=== PATIENT | female | born 1970 | race Caucasian/White ===

== ENCOUNTER → 2019-03-18 13:45 | Outpatient (CLI) | payer OTHER, BC, SELFPAY ==
--- NOTE | 2019-03-18 | DI.US.S_ITS ---
PROCEDURE: US PELVIC COMPLETE INDICATIONS: URINARY FREQUENCY TECHNIQUE: Real-time scanning was performed of the pelvic organs, with image documentation. Additional endovaginal scanning was necessary due to incomplete visualization of the adnexal and endometrial structures by transabdominal scanning. COMPARISON: None. FINDINGS: Transabdominal scanning: Limited scanning through the kidneys shows no hydronephrosis. No pathologic free abdominal or pelvic fluid. Endovaginal scanning: Uterus: Uterus is retroflexed. The uterus dimensions were not measured. The endometrium measures 6.3. mm in combined thickness. There is a 4.7 x 4.3 x 4.8 cm left posterior subserosal uterine fibroid. Ovaries: Right ovary measures 2.4 x 1.3 x 1.0 cm. Left ovary measures 2.7 x 1.2 x 1.3 cm. The ovaries are sonographically normal. IMPRESSION: 1. 4.7 x 4.3 x 4.8 cm uterine fibroid. 2. Ovaries are sonographically normal. Dictated by: Leeanne Pro MD, PhD on 03/18/2019 at 17:18 Approved by: Leeanne Pro MD, PhD on 03/18/2019 at 17:21
--- NOTE | 2019-03-18 | DI.MG.S_ITS ---
BILATERAL DIGITAL SCREENING MAMMOGRAM 3D/2D WITH CAD: 03/18/2019 CLINICAL: Routine screening. Family history of breast cancer. Comparison is made to exams dated: 12/19/2017 mammogram, 10/23/2015 mammogram, and 05/27/2008 mammogram - [facility]. The tissue of both breasts is heterogeneously dense. This may lower the sensitivity of mammography. Current study was also evaluated with a Computer Aided Detection (CAD) system. No significant masses, calcifications, or other findings are seen in either breast. There has been no significant interval change. IMPRESSION: NEGATIVE There is no mammographic evidence of malignancy. A 1 year screening mammogram is recommended. This exam was interpreted at Station ID: [id number]. NOTE: For mammograms, a report in lay terms will be sent to the patient. Approximately 15% of breast malignancies will not be visualized mammographically. In the management of a palpable breast mass, a negative mammogram must not discourage biopsy of a clinically suspicious lesion. Electronically Signed By: Grant mak/lianna:03/18/2019 19:34:41 copy to: Rosi Handy letter sent: Normal Exam ACR BI-RADS Category 1: Negative [id number]
== END ==
PROVIDERS: PCP Family Medicine; Visit Provider Nurse Practitioner Family
DX: Z12.31 Encounter for screening mammogram for malignant neoplasm of breast (principal); Z80.3 Family history of malignant neoplasm of breast; R35.0 Frequency of micturition; D25.2 Subserosal leiomyoma of uterus
CPT/HCPCS: 76830; 76856; 77063; 77067

== ENCOUNTER → 2022-03-18 07:42 | Outpatient (CLI) | payer OTHER, BC, SELFPAY ==
--- NOTE | 2022-03-18 | DI.MG.S_ITS ---
BILATERAL DIGITAL SCREENING MAMMOGRAM 3D/2D WITH CAD: 03/18/2022 CLINICAL: Routine screening. Family history of breast cancer. Comparison is made to exams dated: 03/18/2019 mammogram, 12/19/2017 mammogram, and 10/23/2015 mammogram - [facility]. The tissue of both breasts is heterogeneously dense. This may lower the sensitivity of mammography. Current study was also evaluated with a Computer Aided Detection (CAD) system. There is a new architectural distortion in the left breast at 2 o'clock middle depth. No other significant masses, calcifications, or other findings are seen in either breast. IMPRESSION: INCOMPLETE: NEEDS ADDITIONAL IMAGING EVALUATION The new architectural distortion in the left breast is indeterminate. Additional views with possible ultrasound are recommended. This exam was interpreted at Station ID: [id number]. NOTE: For mammograms, a report in lay terms will be sent to the patient. Approximately 15% of breast malignancies will not be visualized mammographically. In the management of a palpable breast mass, a negative mammogram must not discourage biopsy of a clinically suspicious lesion. Electronically Signed By: Jose A Fish M.D., jr/lianna:03/18/2022 10:26:02 copy to: Rosi Handy letter sent: Additional Imaging Needed ACR BI-RADS Category 0: Incomplete [id number]
== END ==
PROVIDERS: PCP Nurse Practitioner Family; Referring Provider Nurse Practitioner Family; Visit Provider Nurse Practitioner Family
DX: Z12.31 Encounter for screening mammogram for malignant neoplasm of breast (principal); Z80.3 Family history of malignant neoplasm of breast; R92.8 Other abnormal and inconclusive findings on diagnostic imaging of breast
CPT/HCPCS: 77063; 77067

== ENCOUNTER → 2022-04-08 13:09 | Outpatient (CLI) | payer OTHER, BC, SELFPAY ==
--- NOTE | 2022-04-08 | DI.MG.S_ITS ---
UNILATERAL LEFT DIGITAL DIAGNOSTIC MAMMOGRAM 3D/2D WITH ADDITIONAL VIEWS: 04/08/2022 CLINICAL: Additional evaluation requested from prior study. Comparison is made to exams dated: 03/18/2022 mammogram, 03/18/2019 mammogram, and 12/19/2017 mammogram - [facility]. The tissue of left breast is heterogeneously dense. This may lower the sensitivity of mammography. There is possible architectural distortion in the left breast at 2 o'clock middle depth. This is less prominent. No other significant masses or calcifications are seen in the breast. IMPRESSION: INCOMPLETE: NEEDS ADDITIONAL IMAGING EVALUATION The possible architectural distortion in the left breast is indeterminate. A targeted ultrasound is recommended and will immediately follow. This exam was interpreted at Station ID: [id number]. NOTE: For mammograms, a report in lay terms will be sent to the patient. Approximately 15% of breast malignancies will not be visualized mammographically. In the management of a palpable breast mass, a negative mammogram must not discourage biopsy of a clinically suspicious lesion. Electronically Signed By: Manas Rose M.D. slc/:04/08/2022 14:39:50 copy to: Rosi Handy ACR BI-RADS Category 0: Incomplete [id number]
--- NOTE | 2022-04-08 | DI.US.S_ITS ---
LIMITED ULTRASOUND OF LEFT BREAST AND AXILLA: 04/08/2022 CLINICAL: Patient returns today to evaluate an architectural distortion in the left breast. Comparison is made to exams dated: 04/08/2022 mammogram, 03/18/2022 mammogram, and 03/18/2019 mammogram - [facility]. Color flow and real-time ultrasound of the left breast 2 o'clock, and axilla regions were performed. Casey scale images of the real-time examination were reviewed. No significant abnormalities were seen sonographically in the left breast or the left axilla. No mass in the region of possible architectural distortion. IMPRESSION: PROBABLY BENIGN No mass in the region of possible architectural distortion. A follow-up mammogram and possible US in 6 months is recommended to demonstrate stability. Exam findings were conveyed to the patient. This exam was interpreted at Station ID: [id number]. Electronically Signed By: Manas Rose M.D. slc/:04/08/2022 15:37:35 copy to: Rosi Handy letter sent: Followup Recommended Ultrasound BI-RADS: 3 Probably benign
== END ==
PROVIDERS: PCP Nurse Practitioner Family; Referring Provider Nurse Practitioner Family; Visit Provider Nurse Practitioner Family
DX: R92.8 Other abnormal and inconclusive findings on diagnostic imaging of breast (principal)
CPT/HCPCS: 76642; 77065; G0279

== ENCOUNTER → 2022-12-09 14:51 | Outpatient (CLI) | payer OTHER, BC, SELFPAY ==
--- NOTE | 2022-12-09 | DI.MG.S_ITS ---
UNILATERAL LEFT DIGITAL DIAGNOSTIC MAMMOGRAM 3D/2D: 12/09/2022 CLINICAL: Short term follow up for the left breast. Comparison is made to exams dated: 04/08/2022 ultrasound, 04/08/2022 mammogram, 03/18/2022 mammogram, and 03/18/2019 mammogram - . The left breast is heterogeneously dense, which may obscure small masses (category c / 51-75% glandular tissue). There is possible architectural distortion in the left breast at 2 o'clock middle depth. This is not significantly changed and was not seen on the prior ultrasound. No other significant masses or calcifications are seen in the breast. IMPRESSION: PROBABLY BENIGN The possible architectural distortion in the left breast is probably benign. A follow-up mammogram in 6 months is recommended to demonstrate stability. Based on the Tyrer Cuzick model (a risk assessment model) the patient's lifetime risk is 18.5% and her 10 year risk is 5.0%. According to the ACR, ACS, and NCCN guidelines, an annual breast MRI exam along with mammogram is recommended if the patient's lifetime risk is 20% or greater. This exam was interpreted at Station ID: [id number]. NOTE: For mammograms, a report in lay terms will be sent to the patient. Approximately 15% of breast malignancies will not be visualized mammographically. In the management of a palpable breast mass, a negative mammogram must not discourage biopsy of a clinically suspicious lesion. Electronically Signed By: Brenton taylor/lianna:12/09/2022 15:09:42 copy to: Rosi Handy letter sent: Followup Recommended ACR BI-RADS Category 3: Probably benign [id number]
== END ==
PROVIDERS: PCP Nurse Practitioner Family; Referring Provider Nurse Practitioner Family; Visit Provider Nurse Practitioner Family
DX: R92.8 Other abnormal and inconclusive findings on diagnostic imaging of breast (principal)
CPT/HCPCS: 77065; G0279

== ENCOUNTER 2024-06-22 09:19 | Emergency (ER) | payer OTHER, BC, SELFPAY ==
[2024-06-22] VITALS (7 sets, daily range): BP systolic 110–171; BP diastolic 70–96; PULSE 55–72; RESP 15–20; TEMP 36.6; O2SAT 96–99; BMI 27.4
--- NOTE | 2024-06-22 09:43 | EKG_ITS ---
[address] [address] Test Date: 2024-06-22 Pat Name: Eboni Montiel Department: Room: Gender: Female Home Decorator: NATE : 1970 Requested By: Order Number: [id number] Reading MD: Chema Babcock Measurements Intervals [place] Rate: 62 P: 58 TN: 148 QRS: 7 QRSD: 84 T: 41 QT: 424 QTc: 430 Interpretive Statements Sinus rhythm with premature atrial complexes with aberrant conduction Electronically Signed On 06-24-2024 15:52:38 PDT by Chema Babcock
--- NOTE | 2024-06-22 09:49 | DI.RAD.S_ITS ---
PROCEDURE: XR CHEST 1V INDICATIONS: chest pain TECHNIQUE: One view of the chest was acquired. COMPARISON: None. FINDINGS: Surgical changes and devices: Surgical clips in the left axilla Lungs and pleura: Lungs are clear. No pleural effusions or pneumothorax. Mediastinum: Mediastinal contours appear normal. Heart size is normal. Bones and chest wall: No suspicious bony lesions. Overlying soft tissues appear unremarkable. IMPRESSION: No acute cardiopulmonary abnormality is seen. Approved by: Sandeep Mendez M.D. on 06/22/2024 at 9:40
[2024-06-22] MEDS: ASPIRIN 81 MG CHEW TAB 324 MG PO (10:10)
[2024-06-22 10:23] LABS: INR 1.1 (0.9-1.3); Prothrombin Time 12.3 SECONDS (9.4-12.5)
[2024-06-22 10:25] LABS: PTT Partial Thromboplastin Tim 41 SECONDS (25.1-36.5)
--- NOTE | 2024-06-22 10:26 | ED_ITS ---
HPI - Chest Pain General Chief Complaint: Chest Pain Stated Complaint: Tightness in Chest Time Seen by Provider: 06/22/24 10:25 Source: patient Mode of arrival: Ambulatory Limitations: no limitations History of Present Illness HPI narrative: Patient is a 53-year-old female without significant past medical history presenting today with ongoing chest tightness. She recently got back from long trip to [place] includes the [facility] and other places. She reports that this chest tightness does not stop her from doing her daily activities she does not really feel short of breath. She has had no fever chills or upper respiratory like symptoms. She has not really describing it as pain. She has a known PVC which she says has been there for a long time and not caused her any problems. She denies any fluttering or palpitations. I do see PVCs on the monitor. No swelling. Not on any hormones. Related Data Home Medications Medication Instructions Recorded Confirmed bismuth subsalicylate 262 mg 1 tab PO ##0 06/29/17 chewable tablet (Pepto-Bismol) Allergies Allergy/AdvReac Type Severity Reaction Status Date / Time codeine AdvReac Intermediate Vomiting Verified 06/22/24 09:48 Patient History Surgical History History of carpal tunnel repair Family History Mother Age: 73 Thyroid disease Sister Age: 38 Cancer Thyroid disease Exam Initial Vital Signs Initial Vital Signs: Vital Signs Temperature 97.8 F 06/22/24 09:25 Pulse Rate 65 06/22/24 09:25 Respiratory Rate 18 06/22/24 09:25 Blood Pressure 171/96 H 06/22/24 09:25 Pulse Oximetry 96 06/22/24 09:25 Oxygen Delivery Method Room Air 06/22/24 09:25 GENERAL: Alert pleasant 53-year-old and in no acute distress. HEENT: Head atraumatic,EOMI, pupils reactive, face symmetric, moist mucous membranes CARDIOVASCULAR: Regular rate and rhythm without murmurs, rubs or gallops. RESPIRATORY: Breath sounds equal bilaterally, no wheezes rales or rhonchi. ABDOMEN: Soft, nontender. Normoactive bowel sounds all 4 quadrants. No guarding or rebound. EXTREMITIES: Normal range of motion, no clubbing or edema. Neurovascularly intact NEUROLOGICAL: Alert and oriented x4.Normal gait and speech. Cranial nerves II through XII grossly intact. SKIN: Warm, dry, no laceration, no petechiae, no rashes or lesions. Scores HEART Score Heart Score history: Slightly Suspicious Heart Score EKG: Normal Heart Score Age: 45-64 years old Heart Score risk factors: No known risk factors Heart Score troponin: < or = to normal limit Heart Score Total: 1 Course Orders Ordered: ED Orders 06/22/24 09:35 EKG-12 Lead Stat 06/22/24 09:49 XR chest 1V Stat 06/22/24 10:00 Complete Blood Count AUTO DIFF Stat Comprehensive Metabolic Panel Stat Lipase Stat Magnesium Stat NT-proBNP (BNP-Adult 18+) Stat PTT Partial Thromboplastin Adria Stat Prothrombin Time INR Stat Troponin & CK Cardiac Panel Stat 06/22/24 10:10 D Dimer Stat Discontinued Medications Aspirin (Aspirin 81 Mg Chew Tab) 324 mg PO NOW ONE Stop: 06/22/24 09:50 Last Admin: 06/22/24 10:10 Dose: 324 mg Documented By: RICKY Vital Signs Vital signs: Vital Signs - 8 hr 06/22/24 09:25 06/22/24 09:37 06/22/24 09:37 Temperature 97.8 F Pulse Rate 65 72 Respiratory Rate 18 Blood Pressure 171/96 H 171/96 H Pulse Oximetry 96 98 Oxygen Delivery Method Room Air 06/22/24 10:00 06/22/24 10:08 06/22/24 10:08 Temperature Pulse Rate 59 L 55 L Respiratory Rate 19 15 Blood Pressure 145/70 H Pulse Oximetry 98 97 Oxygen Delivery Method 06/22/24 10:30 06/22/24 10:30 06/22/24 11:00 Temperature Pulse Rate 65 62 Respiratory Rate 20 20 Blood Pressure 118/84 Pulse Oximetry 98 99 Oxygen Delivery Method 06/22/24 11:01 06/22/24 11:01 Temperature Pulse Rate 61 Respiratory Rate 17 Blood Pressure 110/74 Pulse Oximetry 98 Oxygen Delivery Method MDM - Chest Pain Lab Data 06/22/24 10:00 06/22/24 10:00 Labs: Lab Results 06/22/24 06/22/24 Range/Units 10:00 10:10 WBC 6.5 (4.5-11.0) X10^3/uL RBC 4.39 (4.0-5.2) X10^6/uL Hgb 13.6 (12.0-16.0) g/dL Hct 38.9 (36-46) % MCV 88.6 (80-100) fL MCH 30.9 (26-34) PG MCHC 34.9 (30-36) % RDW 13.1 (11.6-14.8) % Plt Count 279 (150-400) X10^3/uL Neut % (Auto) 61.2 (50-75) % Lymph % (Auto) 29.6 (25-40) % Evans % (Auto) 6.5 (3-14) % Eos % (Auto) 1.5 L (2-4) % Baso % (Auto) 1.2 (0-2) % Neut # (Auto) 3900 (8589-4715) /uL Lymph # (Auto) 1900 (7082-0988) /uL Evans # (Auto) 400 (0-900) /uL Eos # (Auto) 100 (0-450) /uL Baso # (Auto) 100 (0-100) /uL PT 12.3 (9.4-12.5) SECONDS INR 1.1 (0.9-1.3) APTT 41 H (25.1-36.5) SECONDS D-Dimer 279 (<500) ng/ml Sodium 136 L (137-145) mmol/L Potassium 3.8 (3.4-5.1) mmol/L Chloride 101 (98-107) mmol/L Carbon Dioxide 26 (22-32) mmol/L BUN 11 (7-17) mg/dL Creatinine 0.85 (0.52-1.04) mg/dL Estimated GFR > 60 (>60) mL/min BUN/Creatinine Ratio 12.9 (6-22) Glucose 90 (70-100) mg/dL Calcium 9.6 (8.4-10.2) mg/dL Magnesium 1.9 (1.6-2.3) mg/dL Total Bilirubin 0.8 (0.2-1.3) mg/dL AST 27 (14-36) IU/L ALT 21 (<35) IU/L Alkaline Phosphatase 66 (38-126) U/L Total Creatine Kinase 62 (30-135) U/L Troponin I < 0.012 (0.01-0.034) ng/mL NT-Pro-B Natriuret Pep 25 (<125) pg/mL Total Protein 7.6 (6.3-8.2) g/dL Albumin 4.6 (3.5-5.0) g/dL Globulin 3.0 (1.7-4.1) g/dL Albumin/Globulin Ratio 1.5 (1.0-2.8) Lipase 61 (23-300) U/L Imaging Data Chest x-ray: Radiologist's Impression: INDICATIONS: chest pain TECHNIQUE: One view of the chest was acquired. COMPARISON: None. FINDINGS: Surgical changes and devices: Surgical clips in the left axilla Lungs and pleura: Lungs are clear. No pleural effusions or pneumothorax. Mediastinum: Mediastinal contours appear normal. Heart size is normal. Bones and chest wall: No suspicious bony lesions. Overlying soft tissues appear unremarkable. IMPRESSION: No acute cardiopulmonary abnormality is seen. Approved by: Sandeep Mendez M.D. on 06/22/2024 at 9:40 ECG Data Attestation: I personally reviewed and interpreted this ECG as follows: Interpretation: Normal sinus rhythm rate 62 MO interval 148 QRS 84 QTC 430 PVC noted no ischemic changes no S-wave T-wave or T-wave inversions MDM Narrative Medical decision making narrative: [facility] CC: Chest tightness Complicating co-morbidities: No medical history Medical records reviewed: None Differential considered: Asthma CHF infectious pneumonia pulmonary embolism acute coronary syndrome Exam documented above, pertinent findings include: Well-appearing no acute distress no respiratory distress no wheezing rales or rhonchi no edema Lab Test results independently reviewed as above. Pertinent findings: CBC shows no anemia or leukocytosis D-dimer 279 Troponin negative, BNP 25 Electrolytes within normal limits creatinine 0.85 Independently reviewed EKG as above no ischemia PVC noted Imaging studies independently reviewed: No acute cardiopulmonary process Consultations: none Treatments: none Re-evaluations: No change not significantly worse or better appears well nontoxic vitals stable Discussion: 53-year-old female presenting today with chest tightness. She has no significant risk factors. Heart score 1, year score is negative. She clinically appears well nontoxic without respiratory distress wheezing rales or rhonchi. No concern for acute coronary syndrome she has low risk heart score with a negative troponin and normal EKG. No concern for pulmonary embolism her D-dimer is less than 500 she has not tachycardic or hypoxic. She has no sign of infection on her chest x-ray. Blood work is overall reassuring. She does have frequent PVCs but this is something chronic for her she has never been symptomatic with them and historically. At this time recommend outpatient follow-up YEARS Algorithm for Pulmonary Embolism (PE) from [employer] on 06/22/2024 All calculations should be rechecked by clinician prior to use RESULT SUMMARY: PE excluded YEARS algorithm rules out PE (0.43% with symptomatic VTE during 3-month follow- up) INPUTS: patient ?> 0 = No Clinical signs of DVT ?> 0 = No Hemoptysis ?> 0 = No PE most likely diagnosis ?> 0 = No D-dimer >=,000 ng/mL FEU ?> 0 = No Discharge Plan Departure Patient Disposition: Home Clinical Impression: Atypical chest pain Instructions: DI for Atypical Chest Pain Activity Restrictions/Additional Instructions: *You have been diagnosed with atypical chest pain *What to do: At this time workup in the emergency department is overall reassuring. Blood work is all within normal limits chest x-ray is clear for any sort of infection and EKGs shows your regular PVCs. You may require further cardiac testing primary care provider however not indicated at this time *Continue to take medications as directed *Follow up with your primary care provider in 2-3 days or call [phone] *Return to ER if you should have increasing chest pain shortness of breath [or] any new, worsening or concerning symptoms Prescriptions: No Action bismuth subsalicylate [Pepto-Bismol] 262 MG tablet,chewable 1 tab PO Qty: 0 Referrals: Miriam Aguila ARNP [Primary Care Provider] - Stand Alone Forms: Patient Portal/API
[2024-06-22 10:27] LABS: Alanine Aminotransferase 21 IU/L (<35); Albumin 4.6 g/dL (3.5-5.0); Albumin Globulin Ratio 1.5 (1.0-2.8); Alkaline Phosphatase 66 U/L (38-126); Aspartate Aminotransferase 27 IU/L (14-36); BUN Creatinine Ratio 12.9 (6-22); Bilirubin Total 0.8 mg/dL (0.2-1.3); Blood Urea Nitrogen 11 mg/dL (7-17); Calcium 9.6 mg/dL (8.4-10.2); Carbon Dioxide 26 mmol/L (22-32); Chloride 101 mmol/L (98-107); Creatine Kinase 62 U/L (30-135); Estimated Glomerular Filt Rate > 60 mL/min (>60); Glucose 90 mg/dL (70-100); HEMOLYSIS < 15 (0-50); Lipase 61 U/L (23-300); Magnesium 1.9 mg/dL (1.6-2.3); Potassium 3.8 mmol/L (3.4-5.1); Sodium 136 mmol/L (137-145); Total Protein 7.6 g/dL (6.3-8.2)
[2024-06-22 10:34] LABS: Add Manual Diff / Slide Review NO; Basophils Absolute Auto 100 /uL (0-100); Basophils Percent Auto 1.2 % (0-2); Eosinophils Absolute Auto 100 /uL (0-450); Eosinophils Percent Auto 1.5 % (2-4); Hematocrit 38.9 % (36-46); Hemoglobin 13.6 g/dL (12.0-16.0); Lymphocytes Absolute Auto 1900 /uL (1100-4500); Lymphocytes Percent Auto 29.6 % (25-40); Mean Corpuscular HGB Conc 34.9 % (30-36); Mean Corpuscular Hemoglobin 30.9 PG (26-34); Mean Corpuscular Volume 88.6 fL (80-100); Monocytes Absolute Auto 400 /uL (0-900); Monocytes Percent Auto 6.5 % (3-14); Neutrophils Absolute Auto 3900 /uL (1500-7000); Neutrophils Percent Auto 61.2 % (50-75); Platelet Count 279 X10^3/uL (150-400); Red Blood Cell Count 4.39 X10^6/uL (4.0-5.2); Red Cell Distribution Width 13.1 % (11.6-14.8); White Blood Cell Count 6.5 X10^3/uL (4.5-11.0)
[2024-06-22 10:38] LABS: NT-proBNP (BNP-Adult 18+) 25 pg/mL (<125); Troponin I < 0.012 ng/mL (0.01-0.034)
[2024-06-22 10:51] LABS: D Dimer 279 ng/ml (<500)
== END 2024-06-22 11:20 | disposition home or self-care (01) ==
PROVIDERS: Emergency Provider Emergency Medicine; PCP Nurse Practitioner Family
DX: R07.89 Other chest pain (principal)
CPT/HCPCS: 36415; 71045; 80053; 82550; 83690; 83735; 83880; 84484; 85025; 85379; 85610; 85730; 93005; 99284